=== PATIENT | male | born 2000 ===

== ENCOUNTER 2024-12-31 20:53 | Emergency (ER) | payer OTHER, SELFPAY ==
[2024-12-31 20:55] VITALS: BP 123/80; PULSE 92; RESP 16; TEMP 36.8; O2SAT 97; BMI 36.6
[2024-12-31 21:26] LABS: Hematocrit 44.1 % (37-53); Hemoglobin 15.40 g/dL (11.27-16.99); Mean Corpuscular HGB Conc 34.9 g/dL (30-55); Mean Corpuscular Hemoglobin 30.3 pg (27-33); Mean Corpuscular Volume 86.6 fl (82-101); Nucleated Red Blood Cells % 0 %; Platelet Count 242 10^3/cmm (157-399); Red Blood Count 5.09 10^6/uL (3.85-5.65); White Blood Count 7.42 10^3/uL (3.29-11.43)
[2024-12-31] MEDS: ondansetron 2 mg/ML SDV 2 mL 4 MG IVP (21:33)
[2024-12-31 21:43] LABS: Alanine Aminotransferase 51 U/L (0-41); Albumin Level 4.2 g/dL (3.5-5.2); Alkaline Phosphatase 79 U/L (40-130); Anion Gap 15.5 (5-19); Aspartate Amino Transferase 33 U/L (0-40); Blood Urea Nitrogen 15 mg/dL (6-20); Calcium 9.3 mg/dL (8.5-10.5); Carbon Dioxide 23 mmol/L (22-29); Chloride 105 mmol/L (98-107); Creatinine Clr Calc Pharmacy 148.2657; Globulin 3.2 g/dL (1.3-4.6); Glucose 127 mg/dL (65-115); Osmolality Calculated 292 mOsm/kg (285-295); Potassium 3.5 mmol/L (3.5-5.1); Sodium 140 mmol/L (136-145); Total Protein 7.4 g/dL (6.6-8.7)
--- NOTE | 2024-12-31 21:59 | ED_ITS ---
HPI - Nausea/Vomiting/Diarrhea 2 General: Chief complaint: Nausea/Vomiting/Diarrhea Stated complaint: N/V, stomach hurt Time Seen by Provider: 12/31/24 20:58 Source: patient Mode of arrival: ambulatory Limitations: no limitations History of Present Illness: Patient is a 24-year-old male with no pertinent past medical history who reports emergency department complaining of nausea and vomiting beginning earlier today. Also reporting chills and diffuse bodyaches, denies known sick contacts. States he is also having some nonspecific lower abdominal pain, reports history of appendicitis when he was young but states this was treated distally and did not have surgery. Notes 3 total episodes of vomiting, and has not been able to keep anything down. His vitals are stable at this time. MD elicited complaint: nausea, vomiting and abdominal pain Onset (ago): hour(s) Associated nausea: Yes Associated abdominal pain: Yes Location of pain: RLQ and LLQ Severity: mild Associated symtoms: Reports nausea; Denies chest pain, diaphoresis, dizziness, dysuria, headache(s) or palpitations Related Data Home Medications ?Medication ?Instructions ?Recorded ?Confirmed omeprazole 40 mg capsule,delayed 40 mg PO DAILY 12/09/24 release Previous Rx's ?Medication ?Instructions ?Recorded doxycycline hyclate 100 mg tablet 100 mg PO BID #14 ta bs 12/09/24 silver sulfadiazine 1 % topical 1 applic topical BID # 50 grams 12/09/24 cream (Silvadene) Allergies Allergy/AdvReac Type Severity Reaction Status Date / Time Penicillins Allergy ADR-Nausea Verified 12/09/24 08:44 Review of Systems 2 General: Reports: 10 or more systems reviewed and unremarkable except in HPI and below Const: Reports: chills, body aches and change in appetite; Denies: fever(s), change in weight or diaphoresis ENMT: Denies: throat pain or hoarseness Card: Denies: chest pain, palpitations or lightheadedness Resp: Denies: dyspnea, productive cough or wheezing GI: Reports: abdominal pain, nausea and vomiting; Denies: diarrhea : Denies: flank pain, difficulty urinating, dysuria, urinary frequency or urinary urgency Musc: Denies: neck pain or back pain Skin/Breast: Denies: rash or new lesions Neuro: Denies: headache(s) or dizziness PFSH ED 2 PFSH: Social History Smoking and tobacco/nicotine status: current every day tobacco/nicotine user Physical Exam 2 Const: COMMON NORMALS: no acute distress, average body habitus, patient oriented x3, no limitations, healthy appearing, alert and well nourished G ENERAL APPEARANCE: cooperative and comfortable ORIENTATION/CONSCIOUSNESS: Yes awake HENMT: COMMON NORMALS: normocephalic, atraumatic and moist oral mucous membranes HEAD & SCALP: normocephalic and atraumatic Eye: COMMON NORMALS: Equal, round and reactive pupils present, EOMs intact bilaterally, conjunctivae normal and normal visual osorio by confrontation C ONJUNCTIVA: Yes conjunctivae normal PUPIL: Yes Equal, round and reactive pupils present Neck/C-Spine: COMMON NORMALS: full ROM, supple, no meningeal signs and no JVD Resp: COMMON NORMALS: normal respiratory effort, No retractions, No use of accessory muscles and clear to auscultation bilaterally AUSCULTATION: clear to auscultation bilaterally, no crackles, no rales, no rhonchi and no wheezes Cardio: COMMON NORMALS: no JVD, regular rate, regular rhythm, No gallops present (Cardio), No clicks present (Cardio), No murmurs present (Cardio), No rub (Cardio) and Peripheral pulses 2+ throughout RATE: regular rate R HYTHM: regular rhythm PERIPHERAL PULSES: Peripheral pulses 2+ throughout GI: COMMON NORMALS: Normal to inspection, nondistended, normoactive bowel sounds present, Soft to palpation, non-tender, No hepatosplenomegaly present and no masses AUSCULTATION: Yes normoactive bowel sounds PALPATION: Yes Soft to palpation, No Guarding due to palpation present (GI), No Rigid due to palpation and Yes No hepatosplenomegaly present RECTAL EXAM: Yes deferred OTHER: Negative McBurney's point tenderness, no peritoneal signs : COMMON NORMALS: Yes no CVA tenderness BLADDER/KIDNEY EXAM: Yes no CVA tenderness Back/Pelvis: COMMON NORMALS: no CVA tenderness Extremity: COMMON NORMALS: normal to inspection and full ROM Neuro: COMMON NORMALS: patient oriented x3, moves all extremities, no focal motor deficits and no sensory deficits noted SENSORIUM/ORIENTATION: Yes alert MENINGEAL SIGNS: Yes no meningeal signs Psych: COMMON NORMALS: mental status grossly normal, cooperative and speech normal SPEECH: Yes normal speech Skin: COMMON NORMALS: no rashes or lesions noted GENERAL SKIN EXAM: no rashes or lesions noted Course 2 Vital Signs: Vital signs: Vital Signs Temperature 98.2 F 12/31/24 20:55 Pulse Rate 82 12/31/24 23:43 Respiratory Rate 16 12/31/24 23:43 Blood Pressure 127/84 12/31/24 23:43 Pulse Oximetry 92 12/31/24 23:43 Oxygen Delivery Me thod Room Air 12/31/24 20:55 MDM - Nausea/Vomiting/Diarrhea Medical Decision Making Patient presented with nausea vomiting and chills, beginning earlier today. No reported sick contact exposure, also some nonspecific lower abdominal pain. No concern for any acute abdomen however there is no reproducible chest palpation no peritoneal signs and no positive testing for appendix or gallbladder. Vitals have been stable, lab work is reassuring. Attempted to obtain urinalysis but patient states he is unable to give a urine. Given fluids through IV here and he states he would just rather go home and rest. States he does feel better after Zofran and the fluids, his COVID flu RSV swab was negative but this likely is another viral illness, as I do not suspect any acute emergent cause. I do give him strict return precautions specifically for any right lower quadrant pain that arises, significant vomiting or diarrhea, uncontrollable fever, or any other concerning symptoms. He had no vomiting or diarrhea here in the ED. He is given a work note. Lab Data 12/31/24 21:21 12/31/24 21:21 Laboratory Results WBC 7.42 10^3/uL (3.29-11.43) 12/31/24 21:21 RBC 5.09 10^6/uL (3.85-5.65) 12/31/24 21:21 Hgb 15.40 g/dL (11.27-16.99) 12/31/24 21:21 Hct 44.1 % (37-53) 12/31/24 21:21 MCV 86.6 fl (82-101) 12/31/24 21:21 MCH 30.3 pg (27-33) 12/31/24 21: MCHC 34.9 g/dL (30-55) 12/31/24 21:21 RDW 12.4 % (12.1-15.1) 12/31/24 21:21 Plt Count 242 10^3/cmm (157-399) 12/31/24 21:21 MPV 10.4 fL (7.4-10.4) 12/31/24 21:21 Neut % (Auto) 41.2 % 12/31/24 21:21 Lymph % (Auto) 43.5 % 12/31/24 21:21 [place] % (Auto) 11.3 % 12/31/24 21:21 Eos % (Auto) 3.5 % 12/31/24 21:21 Baso % (Auto) 0.4 % 12/31/24 21:21 Neut # (Auto) 3.05 10^3/uL (1.8-7.7) 12/31/24 21:21 Lymph # (Auto) 3.2 10^3/uL (0.8-4.8) 12/31/24 21:21 [place] # (Auto) 0.8 10^3/uL (0.2-0.9) 12/31/24 21:21 Eos # (Auto) 0.3 10^3/uL (0.0-0.8) 12/31/24 21:21 Baso # (Auto) 0.0 10^3/uL (0.0-0.1) 12/31/24 21:21 Nucleated RBC % (auto) 0 % 12/31/24 21:21 Nucleated RBCs # 0.0 /100WBC 12/31/24 21:21 Sodium 140 mmol/L (136-145) 12/31/24 21:21 Potassium 3.5 mmol/L (3.5-5.1) 12/31/24 21:21 Chloride 105 mmol/L (98-107) 12/31/24 21:21 Carbon Dioxide 23 mmol/L (22-29) 12/31/24 21:21 Anion Gap 15.5 (5-19) 12/31/24 21:21 BUN 15 mg/dL (6-20) 12/31/24 21:21 Creatinine 0.9 mg/dL (0.7-1.2) 12/31/24 21:21 GFR Calculation 104.6 mL/min (90-130) 12/31/24 21:21 Glucose 127 mg/dL (65-115) H 12/31/24 21:21 Calculated Osmolality 292 mOsm/kg (285-295) 12/31/24 21:21 Calcium 9.3 mg/dL (8.5-10.5) 12/31/24 21:21 Total Bilirubin 0.5 mg/dL (0.15-1.2) 12/31/24 21:21 AST 33 U/L (0-40) 12/31/24 21:21 ALT 51 U/L (0-41) H 12/31/24 21:21 Alkaline Phosphatase 79 U/L (40-130) 12/31/24 21:21 Total Protein 7.4 g/dL (6.6-8.7) 12/31/24 21:21 Albumin 4.2 g/dL (3.5-5.2) 12/31/24 21:21 Globulin 3.2 g/dL (1.3-4.6) 12/31/24 21:21 Influenza A (PCR) Negative (Negative) 12/31/24 21:40 Influenza Type B (PCR) Negative (Negative) 12/31/24 21:40 RSV (PCR) Negative (Negative) 12/31/24 21:40 SARS-CoV-2 (PCR) Negative (Negative) 12/31/24 21:40 No radiology studies performed this visit Discharge Plan Discharge Patient Disposition: Home Clinical Impression: Viral gastroenteritis Condition: Stable Prescriptions: No Action omeprazole 40 mg capsule,delayed release(DR/EC) 40 mg PO DAILY silver sulfadiazine [Silvadene] 1 % cream 1 applic topical BID Qty: 50 0RF Rx Instructions: apply a 1.5 mm thickness doxycycline hyclate 100 mg tablet 100 mg PO BID Qty: 14 0RF Discharge Orders: Discharge ED (Routine); Ordered 12/31/24 Ordered By: Jose C Gan Referrals: Addy Arcos MD [Family Provider, Family Practice] Deejay Barraza MD [Primary Care Provider, Family Practice] Patient Instructions: Patient Portal & Raya Instructions Activity Restrictions/Additional Instructions: Viral Gastroenteritis Discharge Diagnosis: Acute viral gastroenteritis Summary: The patient is a 24-year-old male presenting with acute onset nausea, vomiting, and nonspecific lower abdominal pain. No right lower quadrant tenderness or peritoneal signs. Laboratory evaluation (CBC, CMP) unremarkable. Appendicitis and other surgical causes are low concern. Discharged with a diagnosis of viral gastroenteritis. --- Home Management Instructions: - Hydration: - The primary treatment is to maintain adequate hydration. Encourage frequent small sips of fluids, such as water, oral rehydration solutions (e.g., Pedialyte), clear broths, or diluted fruit juices. Sports drinks may be used but are not optimal for electrolyte replacement.[1] https://pubmed.ncbi.nlm.nih.gov/88062348 [2] https://doi.org/10.1038/ajg.2016.126 [3] https://[facility].nlm.nih.gov/49342860 [4] https://www.nejm.org/doi/full/10.1056/IICQbo105719 [5] https://www .nejm.org/doi/full/10.1056/KCIEdh2423321 - Avoid caffeinated, alcoholic, or very sugary beverages, as these may worsen diarrhea. - Monitor for signs of dehydration: dry mouth, decreased urination, dizziness, or feeling very thirsty. - Diet: - Resume eating as tolerated. Start with bland, easily digestible foods (e.g., bananas, rice, applesauce, toast, crackers, potatoes).[4] https://www.nejm.org/doi/full/10.1056/DQGJxj361435 [5] https://www.nejm.org/doi/full/10.1056/BXOKpb9073624 - Avoid dairy products temporarily, as transient lactose intolerance may occur.[ 4] https://www.nejm.org/doi/full/10.1056/XXOGst830279 - Avoid fatty, spicy, or highly seasoned foods until symptoms resolve. - Symptomatic Relief: - Antiemetics: - If nausea or vomiting is significant and impairs oral intake, a single dose of ondansetron (4?8 mg orally) may be considered to facilitate oral hydration. Routine use is not universally recommended, but may be helpful in select adults. [6] https://www.ncbi.nlm.nih.gov/pmc/articles/DAA0041740/ [7] https://pubmed.ncbi.nlm.nih.gov/93780466 [8] https://wwwnc.cdc.gov/travel/yellowbook/2023/infections-diseases/norovirus [9] https://jamanet [facility].com/journals/jamanetworkopen/fullarticle/10.1001/jamanetworkopen.2019.22484 ?utm_source=openevidence&utm_medium=referral - Avoid repeated or high-dose use unless specifically instructed. - Antidiarrheals: - Loperamide (Imodium) may be used for bothersome, non-bloody diarrhea in adults without fever or dysentery. Initial dose: 4 mg, then 2 mg after each loose stool (maximum 8 mg in 24 hours, up to 48 hours).[6] https://www.ncbi.nlm.nih.gov/pmc/articles/ZQY8322199/ [3] https://pubmed.ncbi.nlm.nih.gov/53856593 [10] https://www.nejm.org/doi/full/10.1056/YXAJpc3863121 [5] https://www.nejm.org/doi/full/10.1056/ZVDYoa5098448 - Do not use if there is blood in the stool, high fever, or suspicion for bacterial etiology. - Bismuth subsalicylate (Pepto-Bismol) may provide mild benefit for diarrhea and nausea.[6] https://www.ncbi.nlm.nih.gov/pmc/articles/UVB5722065/ [5] https://www.nejm.org/doi/full/10.1056/PWFYcz6080971 - Probiotics: - Routine use is not recommended, as recent evidence does not support benefit and there may be potential harm.[7] https://pubmed.ncbi.nlm.nih.gov/60475837 - Infection Control and Prevention: - Practice strict hand hygiene with soap and water, especially after using the bathroom and before eating or preparing food.[1] https://pubmed.ncbi.nlm.nih.gov/47904396 [6] https://www.ncbi.nlm.nih.gov/pmc/articles/JPX9281783/ - Avoid preparing food for others, close contact with vulnerable individuals, and recreational water activities until at least 48 hours after symptoms resolve.[6] https://www.ncbi.nlm.nih.gov/pmc/articles/YOW8467653/ - Disinfect contaminated surfaces with appropriate cleaning agents. --- Strict Return Precautions: Return to the emergency department or seek immediate medical attention if any of the following occur: - Inability to keep down fluids for more than 24 hours, or persistent vomiting preventing oral intake - Signs of dehydration: minimal or no urination, dry mouth, sunken eyes, confusion, dizziness, or fainting - Severe or worsening abdominal pain, persistent pain localized to the right lower quadrant, or new peritoneal signs - Bloody stools or black, tarry stools - High fever (>102?F/39?C) or persistent fever - Signs of confusion, lethargy, or altered mental status - Any other concerning or rapidly worsening symptoms --- Work/School Note: A work note will be provided. The patient should refrain from work, school, or food handling until at least 24?48 hours after resolution of vomiting and diarrhea, per infection control recommendations.[6] https://www.ncbi.nlm.nih.gov/pmc/articles/WEP3804885/ --- Follow-Up: If symptoms persist beyond 7 days, worsen, or new symptoms develop, follow up with a primary care provider. References: All recommendations are based on current guidelines and reviews from the Infectious Diseases Society of [place], the [place] [employer], and recent literature.[6] https://www.ncbi.nlm.nih.gov/pmc/articles/PQO3933409/ [11] https://pubmed.ncbi.nlm.nih.gov/12476560 [1] https://pubmed.ncbi.nlm.nih.gov/09287808 [2] https://doi.org/10.1038/ajg.2016.126 [3] https:/ /pubmed.ncbi.nlm.nih.gov/95998430 [7] https://pubmed.ncbi.nlm.nih.gov/33162234 [4] https://www.nejm.org/doi/full/10.1056/IWHVyt940063 [8] https://wwwnc.cdc.gov/travel/yellowbook/2023/infections-diseases/norovirus [9] https://jamanetwork.com/journals/jamanetworkopen/fullarticle/10.1001/jamanetwork open.2018.08273?utm_source=openevidence&utm_medium=referral [10] https://www.nej.org/doi/full/10.1056/TXTGjs2970294 [5] https://www.nejm.org/doi/full/10.1056/UXEEjj6522152 References * Viral Gastroenteritis https://pubmed.ncbi.nlm.nih.gov/52150659 . B?maude K, Mat MK, Vidhi V, Tan UD. Lancet ([place], [place]). 2018;392(37158):175-186. doi:10.1016/T1058-0909(10)51228-0. * ACG Clinical Guideline: Diagnosis, Treatment, and Prevention of Acute Diarrheal Infections in Adults https://doi.org/10.1038/ajg.2016.126 . Tyaskin MS, Aggie HL, Frantz BA. The [place] Journal of Gastroenterology. 2016;111(5):602-22. doi:10.1038/ajg.2016.126. * Acute Diarrhea https://pubmed.ncbi.nlm.nih.gov/04297415 . Sinclair W, Rodney A. [employer]. 2014;89(3):180-9. * Acute Infectious Diarrhea https://www.nejm.org/doi/full/10.1056/ISCMjq611981 . Xin NM, Mina RL. The [place] Journal of Medicine. 2004;350(1):38-47. doi:10.1056/VTGIkw833425. * Enteropathogens and Chronic Illness in Returning Travelers https://www.nejm.org/doi/full/10.1056/XDURlo1594981 . Fazal AG, Lucia GR, Angel AW, Merline NavarroJ, Meche DP. [employer] [place] Journal of Medicine. 2013;368(19):1817-25. doi:10.1056/KUAKir0231363. * 2017 Infectious Diseases Society of [place] Clinical Practice Guidelines for the Diagnosis and Management of Infectious Diarrhea https://www.ncbi.nlm.nih.gov/pmc/articles/RXO2960049/ . Pavan AL, Kiran RK, Franco JA, et al. Clinical Infectious Diseases : An Official Publication of the Infectious Diseases Society of [place]. 2017;65(12):e45-e80. doi:10.1093/bradley/ytj689. * Update on Nonantibiotic Therapies for Acute Gastroenteritis https://pubmed.ncbi.nlm.nih.gov/87429724 . George A, Schnoa D, Barby DE. Current Opinion in Infectious Diseases. 2020;33(5):381-387. doi:10.1097/QCO.7350102816940106. * Norovirus https://wwwnc.cdc.gov/travel/yellowbook/2023/infections- diseases/norovirus . David Covarrubias. [facility] Yellow Book. * Bimodal Release Ondansetron for Acute Gastroenteritis Among Adolescents and Adults: A Randomized Clinical Trial https://jamanetwork.com/journals/jamanetworkopen/fullarticle/10.1001/jamanetwo rkopen.2019.17725?utm_source=openevidence&utm_medium=referral . Florence RA, Lobo SL, Rosario AC, et al. [employer] Network Open. 2019;2(11):l5880938. doi:10.1001/jamanetworkopen.2019.35385. * Acute Infectious Diarrhea in Immunocompetent Adults https://www.nejm.org/doi/full/10.1056/AEQXoo2131683 . Aggie PALOMARES. The [place] Journal of Medicine. 2014;370(16):1532-40. doi:10.1056/ILDRgk1434372. * Acute Diarrhea in Adults https://pubmed.ncbi.nlm.nih.gov/46972255 . Meiaddie ES, Luis Manuel C, Shaun Espinoza. [employer]. 2021;106(1):72-80. Stand Alone Forms: Work/School Release Print Language: Armenian Coding Level of Care Code ED Fabrication Department Supervisor for Ananda Lamb
[2024-12-31 22:33] LABS: Respiratory Syncytial Virus Ce NEGATIVE (Negative); SARS-CoV-2 PCR NEGATIVE (Negative)
[2024-12-31 23:43] VITALS: BP 127/84; PULSE 82; RESP 16; O2SAT 92
== END 2024-12-31 23:53 | disposition home or self-care (01) ==
PROVIDERS: Emergency Provider Physician Assistant; Family Provider Family Medicine; PCP Family Medicine
DX: A08.4 Viral intestinal infection, unspecified (principal); Z11.52 Encounter for screening for COVID-19; Z72.0 Tobacco use
CPT/HCPCS: 36415; 80053; 85025; 87637; 96374; 99284; J2405; J7030

== ENCOUNTER 2025-01-28 20:55 | Emergency (ER) | payer OTHER, SELFPAY ==
--- OUTSIDE RECORDS SUMMARY | 2025-01-28 21:00 | XMS_ITS | Data Portability ---
Author Organization CROW Luciano Armijo [facility] Address [address] [place] [phone] Assessment Encounter Date Assessment Date Assessment LastModified by Organization Details LastModified Time 01/06/2025 01/06/2025 recent ER cbc and metabolic panel were normal [email or web address] Not available 01/06/2025 08:26:10 Plan of Treatment Reminders Order Date Submit Date Provider Last Modified By Organization Details Last Modified Time Details Appointments OFFICE VISIT YASMIN 2024 08:00A M Deejay Barraza MD Not available Not available Not available Lab None recorded. Referral psychiatr ist referral 2024 025 [email or web address] [facility], [address] [place] [address], [id number], 01/13/2025 16:13:56 podiatris t referral [email or web address] [place] [address] Podiatry, [address] [place] [address], [id number], 12/01/2024 16:15:55 Procedures None recorded. Surgeries None recorded. Imaging None recorded. Medication Orders Depakote ER 500 mg tablet,ex tended release 2024 025 [facility], [address], [place], [address], 01/06/2025 08:31:45 Bactrim DS 800 mg-160 mg tablet 2024 025 [facility], [address], [place], [address], 12/10/2024 05:02:20 pantopraz ole 20 mg tablet,de layed release 2024 025 [facility], [address], [place], [address], 11/26/2024 11:50:23 Patient TargetsNo targets recorded. Patient InstructionsNo instructions recorded. Reason for Referral Can Sealer Referral for Ingr owing great toenail Referring Physician: Rafaela Santiago, Family Medicine, Encounter Date: 11/26/2024 Psychiatrist Referral for Bi polar disorder Referring Physician: Deejay Barraza [facility], Encounter Date: 01/06/2025 Problems Name Problem SNOMED Code Status Onset Date Resolution Date Notes Provider Name and Address Organization Details Recorded Time Asthma - currently active 047956192 Active 2024 [facility] 11:41:06 Epileptic seizure 835739089 Active 2024 SAI JESUS [facility] 11:41:21 Indigestion 702291315 Active 2024 SAI JESUS [facility] 11:41:44 Bipolar disorder 38933132 Active 2024 BUBBA FUENTES [facility] 08:16:54 Problem Notes None recorded. Medical Equipment None Reported. Allergies Allergen ID Allergen Name Allergen Category Reaction Reaction Severity Criticality Documentation Date Start Date Code Code System Note Provider Name and Address Organization Details Recorded Time 34939 Product containin g penicilli n (product) medicatio n vomiting Not available Not available 11/26/2024 054785 6743 SNOMED [facility] 11:39:53 Medications Name Sig Start Date Stop Date Status Note LastModified by Organization Details LastModified Time silver sulfadiazin e 1 % topical cream APPLY A 1.5MM THICKNESS OF CREAM EXTERNALL Y TO AFFECTED AREA TWICE DAILY 01/06 completed Not Available Not Available Not Available pantoprazol e 20 mg tablet,denzel yed release Take 1 tablet by mouth once daily 2024 active Not Available Not Available Not Avai lable divalproex ER 500 mg tablet,exte nded release 24 hr TAKE 1 TABLET BY MOUTH ONCE DAILY active Not Available Not Available No t Available doxycycline hyclate 100 mg tablet TAKE 1 TABLET BY MOUTH TWICE DAILY 01/06 completed Not Available Not Available Not Available Bactrim DS 800 mg-160 mg tablet Take 1 tablet every 12 hours by oral route for 7 days. 12/10 completed Not Available Not Available Not Available Vitals Date Recorded Body height Body mass index (BMI) Body weight Respiratory rate Oxygen saturation Oxygen saturation in Arterial blood by Pulse oximetry Heart rate Body temperature Systolic And Diastolic Provider Name and Address Organization Details Last Updated DateTime 5 170.18 cm 35.8 kg/m2 438092. 86 g 17 /min 97 % 97 % 85 /min 97.8 [degF] 124/76 mm[Hg] SAI JESUS [facility]annick 5 11:39:21 Date Recorded Body height Body mass index (BMI) Body weight Body temperature Heart rate Oxygen saturation Oxygen saturation in Arterial blood by Pulse oximetry Systolic And Diastolic Provider Name and Address Organization Details Last Updated DateTime 5 170.18 cm 36.8 kg/m2 831532. 21 g 97.5 [degF] 88 /min 98 % 98 % 108/62 mm[Hg] BUBBA FUENTES [facility] L.LYannickCYannick 5 08:13:16 Social History Question Answer Notes LastModified by Organizat ion Details LastModified Time Tobacco Smoking Status Never Smoker SAI gallardo [facility], LYannickLYannickCYannick 11/26/2024 11:43:56 What Was The Date Of Your Most Recent Tobacco Screening? 11/26/2024 [email or web address] Information not available 11/26/2024 Sex: Unknown Functional Status Question Answer Note LastModified by Organizat ion Details LastModified Time Do you or have you ever used any other forms of tobacco or nicotine? Yes [email or web address] Information not available 11/26/2024 What is your level of alcohol consumption? None [email or web address] Information not available 01/06/2025 Do you or have you ever used e-cigarettes or vape? Current user of electronic cigarettes [email or web address] Information not available 11/26/2024 Mental Status None recorded. Family History Relationship Description Onset Age of this Age Resolved Age Notes LastModified by Organization Details LastModified Time Father Type 2 diabetes mellitus [email or web address] Not available 2024 11:42:06 Maternal Grandmother Malignant neoplastic disease [email or web address] Not available 2024 11:42:46 Unspecified Relation Malignant neoplasm of prostate [email or web address] Not available 2024 11:43:13 Unspecified Relation Malignant neoplasm of lung [email or web address] Not available 2024 11:43:34 Medical History No medical history recorded. Past Encounters Encounter ID Performer Location Encounter Start Date Encounter Closed Date Diagnosis/Indication Diagnosis SNOMED-CT Code Diagnosis ICD10 Code Diagnosis IMO Codes Diagnosis Note [id number] JASON SCOTT [facility] ([facility]) [address] [place] [phone] 11/26/2024 11:26:58 11/30/2024 09:58:12 Ingrowing great toenail 696897595 L60.0 332221 Discussed to soak foot in warm water with epsom salt 3 times a day for 10-15 minutes. Make sure to wear open toed or wide shoes to so the toes are not being squeezed.A pply antibiotic ointment to the toe 2 times a day.take antibiotic as directed.R eferral to Podiatry sent today. Gastroesop hageal reflux disease without esophagitis 388737476 K21.9 953633 Restarted pantoprazo le. [id number] Deejay Barraza MD [facility] ([facility]) [address] [place] [phone] 01/06/2025 08:09:18 01/06/2025 08:57:46 Bipolar disorder 31803976 F31.89 [id number] will refer for further evaluation and treatment of his psychiatri c comorbid conditions .we set this as an absolute condition of our pcp, patient ferh danielle. Health Concerns Section Related Observation LastModified by Organization Detai ls LastModified Time None Recorded Concern Status LastModified by Organization Details LastModified Time None Recorded Advance Directives Directive None Recorded Payers Insurance Date Sequence Insurance Name Policy Number Policy Blair Covered Member ID Blair Member ID Guarantor Name 01/11/2025 1 [employer] - AMBETTER FROM [facility] (EPO) Vargas Case [id number] 1 Vargas Case 11/30/2024 1 [facility] (MEDICAID HMO) Vargas Case [id number] Vargas Case Notes Date Note Type Note Provider Name and Address Organization Details Recorded Time 11/26/2024 text/html ROS as noted in the HPI walk-in; no PCP Patient c/o ingrown toenail on his right great toe. History of in grown nails. He would like a referral to podiatry to get the nail cauterized. States that was performed on his left nail and it's fine now.Also asks if can have a refill on his pantoprazole until he gets established with a PCP JASON SCOTT [address] [place] [address], [phone], [facility] 11/29/2024 10:26:07 01/06/2025 text/html ROS as noted in the HPI anger management: Pt reports that he is here today to get started on something for his moods. He states that he will have anger outbursts. He states that he was diagnosed with bipolar disorder, odd, adhd. He does not feel manic at this time. He does state that he gets depressed many times of year on anniversaries of deaths of his loved ones. his gi symptoms have resolved. he was seen at the ER Deejay Barraza MD [address] [place], [phone], [facility] Zachary, Estephania 01/06/2025 08:33:56
[2025-01-28 21:09] VITALS: BMI 26.6
[2025-01-28 21:12] VITALS: BP 118/78; PULSE 97; RESP 15; TEMP 36.7; O2SAT 99
--- NOTE | 2025-01-28 21:19 | W.ED.PSYCHS ---
HPI - Psych General: Chief Complaint: Psychiatric Symptoms Stated Complaint: MHE made threats to family came own free will Time Seen by Provider: 01/28/25 21:03 History of Present Illness: 24-year-old male patient with history of bipolar disease and ADHD. He has been off medications for 2 years as he has not had insurance. He has an appointment with [facility] on Friday in 3 days to see a psychiatrist, because he got his insurance back recently. He is under quite a bit of stress, as he is about to be a first-time father. He and his fianc?e got into an argument earlier in the evening, around 6 hours ago, and the patient made a statement that he wanted to . He told his fianc?e was going to take a drive. He was found by police a bit later 30 miles or so from his house at a gas station. At this point, he was no longer suicidal. His family urged him to come in to be seen because of his statements prior. He is no longer suicidal. He states that he does not want to , has no plan, and wishes to go home Related Data Home Medications ?Medication ?Instructions ?Recorded ?Confirmed omeprazole 40 mg capsule,delayed 40 mg PO DAILY 12/09/24 12/09/24 release Previous Rx's ?Medication ?Instructions ?Recorded doxycycline hyclate 100 mg tablet 100 mg PO BID #14 tabs 12/09/24 silver sulfadiazine 1 % topical 1 applic topical BID #50 grams 12/09/24 cream (Silvadene) Allergies Allergy/AdvReac Type Severity Reaction Status Date / Time Penicillins Allergy ADR-Nausea Verified 12/09/24 08:44 [facility] ED [facility]: Social History Smoking and tobacco/nicotine status: current every day tobacco/nicotine user Physical Exam Const: COMMON NORMALS: no acute distress GENERAL APPEARANCE: cooperative; not ill appearing and not frail appearing HENMT: COMMON NORMALS: normocephalic, atraumatic and Normal external nose present HEAD & SCALP: normocephalic and atraumatic FACE & SINUS: normal facial exam and face symmetric NOSE: Normal external nose present Eye: COMMON NORMALS: Equal, round and reactive pupils present and EOMs intact bilaterally PUPIL: Yes Equal, round and reactive pupils present Neck/C-Spine: GENERAL: Yes trachea midline Chest: CHEST: Yes Symmetrical chest wall rise Resp: COMMON NORMALS: normal respiratory effort, No retractions, No use of accessory muscles and clear to auscultation bilaterally AUSCULTATION: clear to auscultation bilaterally Cardio: COMMON NORMALS: regular rate and regular rhythm RATE: regular rate RHYTHM: regular rhythm GI: COMMON NORMALS: Normal to inspection, nondistended, normoactive bowel sounds present Extremity: COMMON NORMALS: no pedal edema Neuro: ADELE COMA SCALE: document GCS findings Talmage coma scale eye opening: Spontaneous Adele coma scale verbal response: Orientated Talmage coma scale motor response: Obey commands Adele coma scale total score: 15 SENSORY EXAM: Yes extremities (intact) Psych: COMMON NORMALS: speech normal SPEECH: Yes normal speech Skin: COMMON NORMALS: no rashes or lesions noted GENERAL SKIN EXAM: no rashes or lesions noted Course Vital Signs: Vital signs: Vital Signs Temperature 98.1 F 01/28/25 21:12 Pulse Rate 97 01/28/25 21:12 Respiratory Rate 15 01/28/25 21:12 Blood Pressure 118/78 01/28/25 21:12 Pulse Oximetry 99 01/28/25 21:12 [facility] - Psych Medical Decision Making Patient is not suicidal. He says he made statements in the heat of the moment and the argument, and did not mean them. He did have a history of a suicide attempt after the of his father at age 13, and was hospitalized for this, but has not had problems with suicidal ideation since that time. He has been off medication for the last 2 years, and has remained functional. He has an appointment on Friday in 3 days with [facility]. Medically, he is stable. Will allow him to be discharged at this point, to return for any problems, especially suicidal thoughts No radiology studies performed this visit Discharge Plan Discharge Patient Disposition: Home Clinical Impression: Bipolar disorder Condition: Stable Prescriptions: No Action omeprazole 40 mg capsule,delayed release(DR/EC) 40 mg PO DAILY silver sulfadiazine [Silvadene] 1 % cream 1 applic topical BID Qty: 50 0RF Rx Instructions: apply a 1.5 mm thickness doxycycline hyclate 100 mg tablet 100 mg PO BID Qty: 14 0RF Discharge Orders: Discharge ED (Routine); Ordered 01/28/25 Ordered By: Carlin Mcdaniel Referrals: Deejay Barraza MD [Primary Care Provider, Family Practice] Patient Instructions: Opioid Safety, Pain Management, Patient Portal & Raya Instructions Activity Restrictions/Additional Instructions: Return for any thoughts or wishes to harm your self or anyone else. Keep your appointment with [facility] for Friday as scheduled. Print Language: Lithuanian Coding Level of Care Code ED Lead Consultant for Ananda Lamb
== END 2025-01-28 21:39 | disposition home or self-care (01) ==
PROVIDERS: Emergency Provider Emergency Medicine; PCP Family Medicine
DX: F31.9 Bipolar disorder, unspecified (principal)
CPT/HCPCS: 99283

== ENCOUNTER 2025-03-25 01:33 | Emergency (ER) | payer OTHER, SELFPAY ==
--- NOTE | 2025-03-25 01:40 | ECG_ITS ---
[facility] Test Date: 2025-03-25 Pat Name: Vargas Case Department: Room: Gender: Male [employer] Weeds And Pest Inspector: : 2000 Requested By: Aaron Murdock Order Number: [id number] Marmolejo MD: Evelio Reynolds M.D. Measurements Intervals [place] Rate: 64 P: 10 MT: 155 QRS: 27 QRSD: 110 T: 22 QT: 372 QTc: 386 Interpretive Statements SINUS RHYTHM No previous ECG available for comparison Electronically Signed On 03-26-2025 16:45:54 OIL PIPELINE DISPATCHER by Evelio Reynolds M.D. [email or web address] [id number]
--- NOTE | 2025-03-25 01:40 | XRR_ITS ---
PROCEDURE INFORMATION: Exam: XR Chest Exam date and time: 03/25/2025 2:18 AM Age: 24 years old Clinical indication: Pain; Angina pectoris; Additional info: Chest pain TECHNIQUE: Imaging protocol: Radiologic exam of the chest. Views: 1 view. COMPARISON: No relevant prior studies available. FINDINGS: Lungs: Unremarkable. No consolidation. Pleural spaces: Unremarkable. No pleural effusion. No pneumothorax. Heart/Mediastinum: Unremarkable. No cardiomegaly. Bones/joints: Unremarkable. XR/XR chest 1V portable [id number] IMPRESSION: No acute findings.
--- NOTE | 2025-03-25 01:46 | ED_ITS ---
HPI - Chest Pain 2 General: Chief Complaint: Chest Pain Stated Complaint: CP n/v Time Seen by Provider: 03/25/25 01:46 History of Present Illness: 24-year-old male presents emergency room by private vehicle complaining of chest discomfort with nausea and heartburn symptoms. Patient has a history of significant heartburn the symptoms began immediately after ingesting a very large meal. Denies any medic easier melena uteroscopic Raynaud's no associated shortness of breath diaphoresis or radiation of pain Associated symptoms: Deny abdominal pain, dyspnea or fever(s) Related Data Home Medications ?Medication ?Instructions ?Recorded ?Confirmed omeprazole 40 mg capsule,delayed 40 mg PO DAILY 12/09/24 release Previous Rx's ?Medication ?Instructions ?Recorded doxycycline hyclate 100 mg tablet 100 mg PO BID #14 ta bs 12/09/24 silver sulfadiazine 1 % topical 1 applic topical BID # 50 grams 12/09/24 cream (Silvadene) Allergies Allergy/AdvReac Type Severity Reaction Status Date / Time Penicillins Allergy ADR-Nausea Verified 01/31/25 09:49 Review of Systems 2 Const: Denies: fever(s) or chills Card: Reports: chest pain Resp: Denies: dyspnea GI: Denies: abdominal pain : Denies: dysuria, urinary frequency or urinary urgency Musc: Denies: neck pain or back pain Skin/Breast: Denies: rash PFSH ED 2 PFSH: Medical History Psychiatric care Social History Smoking and tobacco/nicotine status: current every day tobacco/nicotine user Physical Exam 2 Const: GENERAL APPEARANCE: cooperative ORIENTATION/CONSCIOUSNESS: Yes awake, Yes oriented to person, Yes oriented to place and Yes oriented to time HENMT: COMMON NORMALS: normocephalic, atraumatic and hearing grossly normal bilaterally HEAD & SCALP: normocephalic and atraumatic Resp: COMMON NORMALS: normal respiratory effort, No retractions, No use of accessory muscles and clear to auscultation bilaterally AUSCULTATION: clear to auscultation bilaterally Cardio: COMMON NORMALS: regular rate, regular rhythm and No murmurs present (Cardio) RATE: regular rate RHYTHM: regular rhythm GI: COMMON NORMALS: Soft to palpation and No hepatosplenomegaly present A USCULTATION: Yes normoactive bowel sounds PALPATION: Yes Soft to palpation, No Tenderness to palpation present (GI), No Guarding due to palpation present (GI) and Yes No hepatosplenomegaly present Extremity: COMMON NORMALS: normal to inspection, capillary refill normal, no clubbing, cyanosis or edema, no calf tenderness and no pedal edema Neuro: SENSORIUM/ORIENTATION: Yes oriented to person, Yes oriented to place and Yes oriented to time Skin: COMMON NORMALS: no rashes or lesions noted GENERAL SKIN EXAM: no rashes or lesions noted Course 2 Vital Signs: Vital signs: Vital Signs Temperature 98.3 F 03/25/25 01:56 Pulse Rate 88 03/25/25 03:06 Respiratory Rate 17 03/25/25 03:06 Blood Pressure 119/73 03/25/25 03:06 Pulse Oximetry 95 03/25/25 03:06 Oxygen Delivery Me thod Room Air 03/25/25 01:56 MDM - Chest Pain Medical Decision Making Medical decision making Social determinants: None I reviewed the patient's medical record. I reviewed the patient's current home meds Alternate historians: None Differential diagnosis ACS, pneumonia, reflux, pneumothorax Lab Review: White count 13.5 no left shift. Chemistries normal Imaging: Chest x-ray no acute infiltrates no effusions no pneumothorax no pneumonia no masses Assessment of risk: Level of risk: Low Hospitalization considerations: Low risk for hospitalization Reexamination: Symptoms improved after GI cocktail Assessment and plan: Symptoms began after patient ingested a large meal. Improved after GI cocktail. EKG normal will discharge patient home increase Prilosec to twice daily follow-up with primary care Medical Records I reviewed the patient's medical records. Lab Data I reviewed the patient's lab results. 03/25/25 02:20 03/25/25 02:20 Radiology Impressions Chest X-Ray 03/25/25 01:40 IMPRESSION: No acute findings. Laboratory Results WBC 13.58 10^3/uL (3.29-11.43) H 03/25/25 02:20 RBC 5.17 10^6/uL (3.85-5.65) 03/25/25 02:20 Hgb 15.40 g/dL (11.27-16.99) 03/25/25 02:20 Hct 45.2 % (37-53) 03/25/25 02:20 MCV 87.4 fl (82-101) 03/25/25 02:20 MCH 29.8 pg (27-33) 03/25/25 02:20 MCHC 34.1 g/dL (30-55) 03/25/25 02:20 RDW 12.6 % (12.1-15.1) 03/25/25 02:20 Plt Count 255 10^3/cmm (157-399) 03/25/25 02:20 MPV 10.1 fL (7.4-10.4) 03/25/25 02:20 Neut % (Auto) 53.4 % 03/25/25 02:20 Lymph % (Auto) 32.9 % 03/25/25 02:20 [place] % (Auto) 10.5 % 03/25/25 02:20 Eos % (Auto) 2.7 % 03/25/25 02:20 Baso % (Auto) 0.3 % 03/25/25 02:20 Neut # (Auto) 7.24 10^3/uL (1.8-7.7) 03/25/25 02:20 Lymph # (Auto) 4.5 10^3/uL (0.8-4.8) 03/25/25 02:20 [place] # (Auto) 1.4 10^3/uL (0.2-0.9) H 03/25/25 02:20 Eos # (Auto) 0.4 10^3/uL (0.0-0.8) 03/25/25 02:20 Baso # (Auto) 0.0 10^3/uL (0.0-0.1) 03/25/25 02:20 Nucleated RBC % (auto) 0 % 03/25/25 02:20 Nucleated RBCs # 0.0 /100WBC 03/25/25 02:20 Sodium 137 mmol/L (136-145) 03/25/25 02:20 Potassium 4.1 mmol/L (3.5-5.1) 03/25/25 02:20 Chloride 103 mmol/L (98-107) 03/25/25 02:20 Carbon Dioxide 25 mmol/L (22-29) 03/25/25 02:20 Anion Gap 13.1 (5-19) 03/25/25 02:20 BUN 11 mg/dL (6-20) 03/25/25 02:20 Creatinine 0.7 mg/dL (0.7-1.2) 03/25/25 02:20 GFR Calculation 139.8 mL/min (90-130) H 03/25/25 02:20 Glucose 104 mg/dL (65-115) 03/25/25 02:20 Calculated Osmolality 284 mOsm/kg (285-295) L 03/25/25 02:20 Calcium 9.0 mg/dL (8.5-10.5) 03/25/25 02:20 Total Bilirubin 0.4 mg/dL (0.15-1.2) 03/25/25 02:20 AST 23 U/L (0-40) 03/25/25 02:20 ALT 35 U/L (0-41) 03/25/25 02:20 Alkaline Phosphatase 87 U/L (40-130) 03/25/25 02:20 Total Protein 7.5 g/dL (6.6-8.7) 03/25/25 02:20 Albumin 4.3 g/dL (3.5-5.2) 03/25/25 02:20 Globulin 3.2 g/dL (1.3-4.6) 03/25/25 02:20 All radiology interpretation(s) finalized by discharge EKG Data EKG 1: I personally reviewed and interpreted this EKG as follows: Interpretation: EKG 03/25/2025 1:47 AM sinus rhythm rate of 64 DE interval [address] QTc [address] changes noted. No EKG available for comparison Discharge Plan Discharge Patient Disposition: Home Clinical Impression: Chest pain due to gastrointestinal reflux disease Condition: Stable Prescriptions: No Action omeprazole 40 mg capsule,delayed release(DR/EC) 40 mg PO DAILY silver sulfadiazine [Silvadene] 1 % cream 1 applic topical BID Qty: 50 0RF Rx Instructions: apply a 1.5 mm thickness doxycycline hyclate 100 mg tablet 100 mg PO BID Qty: 14 0RF Discharge Orders: Discharge ED (Routine); Ordered 03/25/25 Ordered By: Aaron Kline Referrals: Deejay Barraza MD [Primary Care Provider, Family Practice] Discharge Diet: As Directed Discharge Activity: Resume usual activity Patient Instructions: Chest Pain (ED), Diet for Stomach Ulcers and Gastritis (ED), GERD (Gastroesophageal Reflux Disease) (ED), Opioid Safety, Pain Management, Patient Portal & Raya Instructions Activity Restrictions/Additional Instructions: Thank you for choosing [facility] for your healthcare needs today. It is very important that you follow up as instructed or that you return to the Emergency Department should you have concerns or if your condition changes or worsens in any way. Emergency department visits are focused on emergent conditions, in some cases you may require further evaluation on an outpatient basis. You were seen in the emergency room with complaints of chest discomfort. EKG was normal your labs were otherwise unremarkable. Given the history and your symptoms this was most likely due to reflux. Will discharge you home increase your omeprazole to 1 pill twice a day. (Please note that included in your discharge packet is information concerning opioid safety and pain management. This information is given to all patients were discharged from the ER regardless of their discharge diagnosis or the medicines they usually take or are prescribed.) Print Language: Urdu Coding Level of Care Code ED Marine Erector for Ananda Lamb Heart Score HEART Score Components History: Slightly Suspicous EKG: Normal Age: Less than 45 yrs Risk Factors: No Risk Factors Known Troponin: Baseline Trop <16 ng/L (Troponin is not done symptoms not characteristics of acute coronary syndrome) HEART Score RESULT HEART Score: 0
--- OUTSIDE RECORDS SUMMARY | 2025-03-25 01:48 | XMS_ITS | Continuity of Care Document ---
Author Organization [facility] Zachary, Estephania, [facility] ([facility]) Address [address] [place] [address] Assessment No assessment recorded. Plan of Treatment Reminders Order Date Submit Date Provider Last Modified By Organization Details Last Modified Time Details Appointments OFFICE VISIT YASMIN 2024 09:15A M Deejay Barraza MD Not available Not available Not available Lab None recorded. Referral None recorded. Procedures None recorded. Surgeries None recorded. Imaging None recorded. Medication Orders Depakote ER 500 mg tablet,ex tended release [email or web address] [place] [address] Pharmacy 15, [address], [place], [address], 02/08/2025 09:29:43 Patient TargetsNo targets recorded. Patient InstructionsNo instructions recorded. Reason for Referral None Reported. Problems Name Problem SNOMED Code Status Onset Date Resolution Date Notes Provider Name and Address Organization Details Recorded Time Asthma - currently active 265043299 Active 2024 [facility] 11:41:06 Epileptic seizure 387880449 Active 2024 [facility] 11:41:21 Indigestion 059819827 Active 2024 [facility] 11:41:44 Bipolar disorder 70637941 Active 2024 BUBBA [facility] 08:16:54 Problem Notes None recorded. Medical Equipment None Reported. Allergies Allergen ID Allergen Name Allergen Category Reaction Reaction Severity Criticality Documentation Date Start Date Code Code System Note Provider Name and Address Organization Details Recorded Time 62024 Product containin g penicilli n (product) medicatio n vomiting Not available Not available 11/26/2024 85446 8001 SNOMED SAI gallardo [facility], Estephania 11:39:53 Medications Name Sig Start Date Stop Date Status Note LastModified by Organization Details LastModified Time silver sulfadiazin e 1 % topical cream APPLY A 1.5MM THICKNESS OF CREAM EXTERNALL Y TO AFFECTED AREA TWICE DAILY 01/06 completed Not Available Not Available Not Available pantoprazol e 20 mg tablet,denzel yed release TAKE 1 TABLET BY MOUTH ONCE DAILY active Not Available Not Available No t Available Depakote ER 500 mg tablet,exte nded release Take 2 tablets every day by oral route for 30 days. 2024 active Not Available Not Available Not Avai lable albuterol sulfate HFA 90 mcg/actuati on aerosol inhaler INHALE 2 PUFFS BY MOUTH EVERY 4 HOURS NEEDED active Not Available Not Available No t [...] weight Body temperature Heart rate Oxygen saturation Systolic And Diastolic Provider Name and Address Organization Details Last Updated DateTime 5 170.18 cm 37.1 kg/m2 011669. 39 g 98.3 [degF] 94 /min 97 % 118/68 mm[Hg] BUBBA FUENTES [facility], AnibalLCelestine 5 09:14:49 Social History Question Answer Notes LastModified by Organizat ion Details LastModified Time Tobacco Smoking Status Never Smoker SAI gallardo [facility], Estephania 11/26/2024 11:43:56 What Was The Date Of Your Most Recent Tobacco Screening? 11/26/2024 Information not available 11/26/2024 Sex: Unknown Functional Status Question Answer Note LastModified by Organizat ion Details LastModified Time Do you or have you ever used any other forms of tobacco or nicotine? Yes Information not available 11/26/2024 What is your level of alcohol consumption? None [email or web address] Information not available 01/06/2025 Do you or have you ever used e-cigarettes or vape? Current user of electronic cigarettes [email or web address] Information not available 11/26/2024 Mental Status None recorded. Family History Relationship Description Onset Age of this Age Resolved Age Notes LastModified by Organization Details LastModified Time Father Type 2 diabetes mellitus Not available 2024 11:42:06 Maternal Grandmother Malignant neoplastic disease [email or web address] Not available 2024 11:42:46 Unspecified Relation Malignant neoplasm of prostate [email or web address] Not available 2024 11:43:13 Unspecified Relation Malignant neoplasm of lung [email or web address] Not available 2024 11:43:34 Medical History No medical history recorded. Past Encounters Encounter ID Performer Location Encounter Start Date Encounter Closed Date Diagnosis/Indication Diagnosis SNOMED-CT Code Diagnosis ICD10 Code Diagnosis IMO Codes Diagnosis Note [id number] Deejay Barraza MD [facility] ([facility]) [address] [place] [phone] 02/08/2025 09:05:02 02/09/2025 11:45:48 Bipolar disorder 49241581 F31.9 [id number] will refer for further evaluation and treatment of his psychiatri c comorbid conditions .we set this as an absolute condition of our pcp, patient relationsh ip. Health Concerns Section Related Observation LastModified by Organization Detai ls LastModified Time None Recorded Concern Status LastModified by Organization Details LastModified Time None Recorded Payers Encounter Date Sequence Insurance Name Policy Number Policy Blair Covered Member ID Blair Member ID Guarantor Name 02/08/2025 1 JASIEL - GAYLER [facility] [employer] [place] [employer] [place] Vargas Case [id number] 1 Vargas Case Notes Date Note Type Note Provider Name and Address Organization Details Recorded Time 02/08/2025 text/html ROS as noted in the HPI anger management: 1 month f/u. Started on depakote at last visit. Most recently, pt went to the ER after getting into an argument with his . He went for a drive and police found him about 30 miles from home. He went to the ER voluntarily and was d/c. He reports that he is doing better. Anger outbursts have decreased. He states that he was diagnosed with bipolar disorder, odd, adhd. He does not feel manic at this time. He does state that he gets depressed many times of year on anniversaries of deaths of his loved ones. ER f/u Deejay Barraza MD [address] [place] [address], [phone], [facility], Estephania 02/08/2025 09:29:49
--- OUTSIDE RECORDS SUMMARY | 2025-03-25 01:48 | XMS_ITS | Continuity of Care Document ---
Author Organization [facility], LJonathon, [facility] ([facility]) Address [address] [place] [address] Assessment Encounter Date Assessment Date Assessment LastModified by Organization Details LastModified Time 01/06/2025 01/06/2025 recent ER cbc and metabolic panel were normal [email or web address] Not available 01/06/2025 08:26:10 Plan of Treatment Reminders Order Date Submit Date Provider Last Modified By Organization Details Last Modified Time Details Appointments OFFICE VISIT YASMIN 2024 09:15A M Deejay Barraza MD Not available Not available Not available Lab None recorded. Referral psychiatr ist referral 2024 025 [email or web address] [facility], [address] [place] [address], [address], 01/13/2025 16:13:56 Procedures None recorded. Surgeries None recorded. Imaging None recorded. Medication Orders Depakote ER 500 mg tablet,ex tended release [address] [facility], [address], [place], [address], 01/06/2025 08:31:45 Patient TargetsNo targets recorded. Patient InstructionsNo instructions recorded. Reason for Referral Psychiatrist Referral for Bi polar disorder Referring Physician: Deejay Barraza, Family Medicine, Encounter Date: 01/06/2025 Problems Name Problem SNOMED Code Status Onset Date Resolution Date Notes Provider Name and Address Organization Details Recorded Time Asthma - currently active 938025096 Active 2024 SAI gallardo [facility] 5 11:41:06 Epileptic seizure 966348191 Active 2024 SAI JESUS [facility] 5 11:41:21 Indigestion 302327978 Active 2024 SAI JESUS [facility]ick[facility]CY[facility] 5 11:41:44 Bipolar disorder 80957629 Active 2024 BUBBA FUENTES [facility] 08:16:54 Problem Notes None recorded. Medical Equipment None Reported. Allergies Allergen ID Allergen Name Allergen Category Reaction Reaction Severity Criticality Documentation Date Start Date Code Code System Note Provider Name and Address Organization Details Recorded Time 07324 Product containin g penicilli n (product) medicatio n vomiting Not available Not available 11/26/2024 64460 8001 SNOMED SAI JESUS [facility] 11:39:53 Medications Name Sig Start [...] and Address Organization Details Last Updated DateTime 170.18 cm 36.8 kg/m2 837371. 21 g 97.5 [degF] 88 /min 98 % 108/62 mm[Hg] BUBBALinda FUENTES [facility] 08:13:16 Social History Question Answer Notes LastModified by [employer] Details LastModified Time Tobacco Smoking Status Never Smoker SAITORITO JESUS paulina [facility] 11/26/2024 11:43:56 What Was The Date Of Your Most Recent Tobacco Screening? 11/26/2024 [email or web address] Information not available 11/26/2024 Sex: Unknown Functional Status Question Answer Note LastModified by [employer] Details LastModified Time Do you or have you ever used any other forms of tobacco or nicotine? Yes Information not available 11/26/2024 What is your level of alcohol consumption? None [email or web address] Information not available 01/06/2025 Do you or have you ever used e-cigarettes or vape? Current user of electronic cigarettes [email or web address] Information not available 11/26/2024 Mental Status None recorded. Family History Relationship Description Onset Age of this Age Resolved Age Notes LastModified by Organization Details LastModified Time Father Type 2 diabetes mellitus [email or web address] Not available 2024 11:42:06 Maternal Grandmother Malignant neoplastic disease [email or web address] Not available 2024 11:42:46 Unspecified Relation Malignant neoplasm of prostate [email or web address] Not available 2024 11:43:13 Unspecified Relation Malignant neoplasm of lung [email or web address] Not available 2024 11:43:34 Medical History No medical history recorded. Past Encounters Encounter ID Performer Location Encounter Start Date Encounter Closed Date Diagnosis/Indication Diagnosis SNOMED-CT Code Diagnosis ICD10 Code Diagnosis IMO Codes Diagnosis Note [id number] Deejay Barraza MD [facility] ([facility]) [address] [place] [phone] 01/06/2025 08:09:18 01/06/2025 08:57:46 Bipolar disorder 27290440 F31.89 [id number] will refer for further evaluation and treatment of his psychiatri c comorbid conditions .we set this as an absolute condition of our pcp, patient relationsh danielle. Health Concerns Section Related Observation LastModified by Organization Detai ls LastModified Time None Recorded Concern Status LastModified by Organization Details LastModified Time None Recorded Payers Encounter Date Sequence Insurance Name Policy Number Policy Blair Covered Member ID Blair Member ID Guarantor Name 01/06/2025 1 CENTENE - AMBETTER [employer] ([place]PO) Vargas Case [id number] 1 Vargas Case Notes Date Note Type Note Provider Name and Address Organization Details Recorded Time 01/06/2025 text/html ROS as noted in the [...] seen at the ER Deejay Barraza MD [address] [place] [address], [phone], [facility] 01/06/2025 08:33:56
--- OUTSIDE RECORDS SUMMARY | 2025-03-25 01:48 | XMS_ITS | Data Portability ---
Author Organization [facility] Luciano Armijo [facility] Address [address] [facility] [address] [place] [address] Assessment Encounter Date Assessment Date Assessment LastModified by Organization Details LastModified Time 01/06/2025 01/06/2025 recent ER cbc and metabolic panel were normal [email or web address] Not available 01/06/2025 08:26:10 Plan of Treatment Reminders Order Date Submit Date Provider Last Modified By Organization Details Last Modified Time Details Appointments OFFICE VISIT YASMIN 2024 09:15A M Deejay Barraza MD Not available Not available Not available Lab None recorded. Referral psychiatr ist referral 2024 025 [email or web address] [facility], [address] [place] [address], [address], 01/13/2025 16:13:56 podiatris t referral 2024 025 [email or web address] [facility], [address] [place] [address], [address], 12/01/2024 16:15:55 Procedures None recorded. Surgeries None recorded. Imaging None recorded. Medication Orders Depakote ER 500 mg tablet,ex tended release 2024 025 [email or web address] [facility], [address], [place], [address], 02/08/2025 09:29:43 Depakote ER 500 mg tablet,ex tended release 2024 025 [facility], [address], [place], [address], 01/06/2025 08:31:45 Bactrim DS 800 mg-160 mg tablet 2024 025 [facility] 15, [address], [place], [address], 12/10/2024 05:02:20 pantopraz ole 20 mg tablet,de layed release 2024 025 [facility] 15, [address], [place], [address], 11/26/2024 11:50:23 Patient TargetsNo targets recorded. Patient InstructionsNo instructions recorded. Reason for Referral Legal Secretary Referral for Ingr owing great toenail Referring Physician: Rafaela Santiago, Family Medicine, Encounter Date: 11/26/2024 Psychiatrist Referral for Bi polar disorder Referring Physician: Deejay Barraza Family Medicine, Encounter Date: 01/06/2025 Problems Name Problem SNOMED Code Status Onset Date Resolution Date Notes Provider Name and Address Organization Details Recorded Time Asthma - currently active 483945408 Active 2024 SAI gallardo [facility] 11:41:06 Epileptic seizure 202734633 Active 2024 SAI gallardo [facility] 11:41:21 Indigestion 214629388 Active 2024 SAI gallardo [facility] 11:41:44 Bipolar disorder 52449000 Active 2024 BUBBA gallardo [facility] 08:16:54 Problem Notes None recorded. Medical Equipment None Reported. Allergies Allergen ID Allergen Name Allergen Category Reaction Reaction Severity Criticality Documentation Date Start Date Code Code System Note Provider Name and Address Organization Details Recorded Time 63952 Product containin g penicilli n (product) medicatio n vomiting Not available Not available 11/26/2024 44121 8001 SNOMED [facility] 5 11:39:53 Medications Name Sig Start Date Stop [...] (BMI) Body weight Respiratory rate Oxygen saturation Heart rate Body temperature Systolic And Diastolic Provider Name and Address Organization Details Last Updated DateTime 5 170.18 cm 35.8 kg/m2 453658. 86 g 17 /min 97 % 85 /min 97.8 [degF] 124/76 mm[Hg] SAI GRANDEEL [facility] 5 11:39:21 Date Recorded Body height Body mass index (BMI) Body weight Body temperature Heart rate Oxygen saturation Systolic And Diastolic Provider Name and Address Organization Details Last Updated DateTime 5 170.18 cm 36.8 kg/m2 601937. 21 g 97.5 [degF] 88 /min 98 % 108/62 mm[Hg] BUBBA FUENTES [facility] 5 08:13:16 Date Recorded Body height Body mass index (BMI) Body weight Body temperature Heart rate Oxygen saturation Systolic And Diastolic Provider Name and Address Organization Details Last Updated DateTime 5 170.18 cm 37.1 kg/m2 458224. 39 g 98.3 [degF] 94 /min 97 % 118/68 mm[Hg] BUBBA FUENTES [facility] 5 09:14:49 Social History Question Answer Notes LastModified by Zillow Details LastModified Time Tobacco Smoking Status Never Smoker SAI gallardo [facility] 11/26/2024 11:43:56 What Was The Date Of Your Most Recent Tobacco Screening? 11/26/2024 [email or web address] Information not available 11/26/2024 Sex: Unknown Functional Status Question Answer Note LastModified by Z[employer] Details LastModified Time Do you or have you ever used any other forms of tobacco or nicotine? Yes [email or web address] Information not available 11/26/2024 What is your level of alcohol consumption? None [email or web address] Information not available 01/06/2025 Do you or have you ever used e-cigarettes or vape? Current user of electronic cigarettes [email or web address] Information not available 11/26/2024 Mental Status None recorded. Family History Relationship Description Onset Age of this Age Resolved Age Notes LastModified by Organization Details LastModified Time Father Type 2 diabetes mellitus [email or web address] Not available 2024 11:42:06 Maternal Grandmother Malignant neoplastic disease [email or web address] Not available 2024 11:42:46 Unspecified Relation Malignant neoplasm of prostate Not available 2024 11:43:13 Unspecified Relation Malignant neoplasm of lung [email or web address] Not available 2024 11:43:34 Medical History No medical history recorded. Past Encounters Encounter ID Performer Location Encounter Start Date Encounter Closed Date Diagnosis/Indication Diagnosis SNOMED-CT Code Diagnosis ICD10 Code Diagnosis IMO Codes Diagnosis Note [id number] JASON SCOTT [facility] ([facility]) [address] [place] [address] 11/26/2024 11:26:58 11/30/2024 09:58:12 Ingrowing great toenail 205932957 L60.0 621366 Discussed to soak foot in warm water with epsom salt 3 times a day for 10-15 minutes. Make sure to wear open toed or wide shoes to so the toes are not being squeezed.A pply antibiotic ointment to the toe 2 times a day.take antibiotic as directed.R eferral to Podiatry sent today. Gastroesop hageal reflux disease without esophagitis 241037332 K21.9 002958 Restarted pantoprazo le. [id number] Deejay Barraza MD [facility] ([facility]) [address] [place] [phone] 01/06/2025 08:09:18 01/06/2025 08:57:46 Bipolar disorder 25908870 F31.89 [id number] will refer for further evaluation and treatment of his psychiatri c comorbid conditions .we set this as an absolute condition of our pcp, patient relationsh ip. [id number] Deejay Barraza MD [facility] ([facility]) [address] [place] [phone] 02/08/2025 09:05:02 02/09/2025 11:45:48 Bipolar disorder 84303675 F31.9 [id number] will refer for further evaluation and treatment [...] Member ID Blair Member ID Guarantor Name 03/12/2025 1 JASIEL AMAYA FROM [facility] ([facility]) Vargas Case [id number] 1 Vargas Case 02/08/2025 1 [facility] [employer] (MEDICAID HMO) Vargas Case [id number] 1 [id number] Vargas Case Notes Date Note Type Note [...] gets established with a PCP JASON SCOTT [address] [place] [address], [phone], [facility], Estephania 11/29/2024 10:26:07 01/06/2025 text/html ROS as noted [...] seen at the ER Deejay Barraza MD [address] [place] [address], [phone], [facility], Estephania 01/06/2025 08:33:56 02/08/2025 text/html ROS as noted in the [...] loved ones. ER f/u Deejay Barraza MD [address] [place] [address], [phone], [facility] 02/08/2025 09:29:49
[2025-03-25 01:51] VITALS: BP 114/75; PULSE 65; RESP 16; O2SAT 95; BMI 37.5
[2025-03-25 01:56] VITALS: BP 114/75; PULSE 65; RESP 16; TEMP 36.8; O2SAT 95
[2025-03-25 02:26] LABS: Hematocrit 45.2 % (37-53); Hemoglobin 15.40 g/dL (11.27-16.99); Mean Corpuscular HGB Conc 34.1 g/dL (30-55); Mean Corpuscular Hemoglobin 29.8 pg (27-33); Mean Corpuscular Volume 87.4 fl (82-101); Nucleated Red Blood Cells % 0 %; Platelet Count 255 10^3/cmm (157-399); Red Blood Count 5.17 10^6/uL (3.85-5.65); White Blood Count 13.58 10^3/uL (3.29-11.43)
[2025-03-25] MEDS: lidocaine 2% viscous 15 ML, aluminum-mag hydrox-simethicon 30 ML, sucralfate oral liq 1 GM PO (02:45)
[2025-03-25 02:52] VITALS: BP 144/93; PULSE 87; RESP 17; O2SAT 95
[2025-03-25 03:06] VITALS: BP 119/73; PULSE 88; RESP 17; O2SAT 95
[2025-03-25 03:09] LABS: Alanine Aminotransferase 35 U/L (0-41); Albumin Level 4.3 g/dL (3.5-5.2); Alkaline Phosphatase 87 U/L (40-130); Anion Gap 13.1 (5-19); Aspartate Amino Transferase 23 U/L (0-40); Blood Urea Nitrogen 11 mg/dL (6-20); Calcium 9.0 mg/dL (8.5-10.5); Carbon Dioxide 25 mmol/L (22-29); Chloride 103 mmol/L (98-107); Globulin 3.2 g/dL (1.3-4.6); Glucose 104 mg/dL (65-115); Osmolality Calculated 284 mOsm/kg (285-295); Potassium 4.1 mmol/L (3.5-5.1); Sodium 137 mmol/L (136-145); Total Protein 7.5 g/dL (6.6-8.7)
[2025-03-25 03:39] VITALS: BP 119/73; PULSE 63; RESP 17; O2SAT 93
== END 2025-03-25 03:42 | disposition home or self-care (01) ==
PROVIDERS: Emergency Provider Family Medicine; PCP Family Medicine
DX: K21.9 Gastro-esophageal reflux disease without esophagitis (principal); Z72.0 Tobacco use
CPT/HCPCS: 36415; 71045; 80053; 85025; 93005; 99285; J9999